=== PATIENT | female | born 1935 | race Caucasian/White ===

== ENCOUNTER 2021-06-04 11:37 | Emergency (ER) | payer OTHER ==
[~2021-06-04] VITALS: Ht 121.9 cm; Wt 55.3 kg
[2021-06-04] MEDS ORDERED: COMBIGAN EYE DRO5 ML OP (11:53)
[2021-06-04] MEDS ORDERED: LOSARTAN POTASS25 MG PO (11:54)
[2021-06-04] MEDS ORDERED: SIMVASTATIN40 MG PO (11:54)
[2021-06-04] MEDS ORDERED: GLIMEPIRIDE2 M1 PO (11:54)
[2021-06-04] MEDS ORDERED: METFORMIN HCL1000 M3 PO (11:54)
== END 2021-06-04 14:58 | disposition home or self-care (01) ==
LOC: ER 11:37
DX: M54.9 Dorsalgia, unspecified (principal); S00.93XA Contusion of unspecified part of head, initial encounter; W01.0XXA Fall on same level from slipping, tripping and stumbling without subsequent striking against object, initial encounter; Y93.F9 Activity, other caregiving; Y92.012 Bathroom of single-family (private) house as the place of occurrence of the external cause